=== PATIENT | male | born 1970 | race Caucasian/White ===

== ENCOUNTER 2016-06-07 20:35 | Emergency (ER) | payer OTHER ==
[2016-06-07] MEDS ORDERED: OXYCODONE/APAP 5/325MG PREPACK#4 BTL TAKEHOME ONE (20:46)
--- NOTE | 2016-06-07 20:51 | UCPHY ---
H & P Patient Type: New Time Seen by Provider: 06/07/16 20:41 HPI/ROS: CHIEF COMPLAINT: Burn HISTORY OF PRESENT ILLNESS: Patient is a 46-year-old man who comes to the Urgent Care complaining of a burn to his left wrist. He states that he was cooking stew and it splattered onto his wrist. This happened about 20 minutes ago. He does not have any other significant medical history. Has had 2 beers tonight. REVIEW OF SYSTEMS: Constitutional: denies: chills, fever, recent illness, recent injury EENTM: denies: blurred vision, double vision, nose congestion Respiratory: denies: cough, shortness of breath Cardiac: denies: chest pain, irregular heart rate, lightheadedness, palpitations Gastrointestinal/Abdominal: denies: abdominal pain, diarrhea, nausea, vomiting, blood streaked stools Genitourinary: denies: dysuria, frequency, hematuria, pain Musculoskeletal: denies: joint pain, muscle pain Skin: See HPI Neurological: denies: headache, numbness, paresthesia, tingling, dizziness, weakness Hematologic/Lymphatic: denies: blood clots, easy bleeding, easy bruising Immunologic/allergic: denies: HIV/AIDS, transplant EXAM: GENERAL: Well-appearing, well-nourished and in no acute distress. HEAD: Atraumatic, normocephalic. EYES: Pupils equal round and reactive to light, extraocular movements intact, sclera anicteric, conjunctiva are normal. ENT: TMs normal, nares patent, oropharynx clear without exudates. Moist mucous membranes. NECK: Normal range of motion, supple without lymphadenopathy or JVD. LUNGS: Breath sounds clear to auscultation bilaterally and equal. No wheezes rales or rhonchi. HEART: Regular rate and rhythm without murmurs, rubs or gallops. ABDOMEN: Soft, nontender, normoactive bowel sounds. No guarding, no rebound. No masses appreciated. BACK: No CVA tenderness, no spinal tenderness, step-offs or deformities EXTREMITIES: Normal range of motion, no pitting or edema. No clubbing or cyanosis. NEUROLOGICAL: Cranial nerves II through XII grossly intact. Normal speech, normal gait. 5/5 strength, normal movement in all extremities, normal sensation PSYCH: Normal mood, normal affect. SKIN: less than 1% body surface area burn. 2nd degree. Sensation intact. Thin layer of skin sloughed. It is less than size of his palm. Medial aspect of wrist only, not circumferential normal range of motion and sensation distally. Source: Patient Exam Limitations: No limitations - Personal History Tetanus Vaccine Date: <10yrs - Medical/Surgical History Hx Asthma: No Hx Chronic Respiratory Disease: No Hx Diabetes: No Hx Cardiac Disease: No Hx Renal Disease: No Hx Cirrhosis: No Hx Alcoholism: No Hx HIV/AIDS: No Hx Splenectomy or Spleen Trauma: No Other PMH: Orthopedic surgery on both knees, the right knee recently - Family History Significant Family History: No pertinent family hx - Social History Smoking Status: Never smoked Alcohol Use: Sober Drug Use: None Constitutional: Initial Vital Signs Temperature (C) 36.6 C 06/07/16 21:09 Heart Rate 85 06/07/16 21:09 Respiratory Rate 16 06/07/16 21:09 Blood Pressure 148/104 H 06/07/16 21:09 O2 Sat (%) 95 06/07/16 21:09 O2 Delivery Mode Room Air Allergies/Adverse Reactions: No Known Allergies Allergy (Verified 06/07/16 21:07) Home Medications: Medication Instructions Recorded oxyCODONE/APAP 5/325 [Percocet 1 - 2 tab PO Q4H PRN #20 tab 06/07/16 5/325 (*)] Medical Decision Making ED Course/Re-evaluation: Patient has a less than 1% body surface area second-degree burn. The skin is already sloughed. We have treated the margins slightly. We will dressed with bacitracin and sterile dressing and have him change daily and follow up with surgery. Patient and understand agree with this plan. Initially they declined pain medication but I will prescribe him Percocet to use p.r.n. for pain. We discussed indications for returning. Additional verbal discharge instructions yet. Supplies given for dressing changes. Differential Diagnosis: Partial list of the Differential diagnosis considered include but were not limited to; burn, infection, foreign body and although unlikely based on the history and physical exam, I also considered assault, fasciitis. I discussed these differential diagnoses and the plan with the patient as well as the usual and expected course. The patient understands that the diagnosis is provisional and that in medicine we are not always correct and that further workup is often warranted. Usual and customary warnings were given. All of the patient's questions were answered. The patient was instructed to return to the emergency department should the symptoms at all worsen or return, otherwise to followup with the physician as we discussed. - Data Points Medications Given: Discontinued Medications Oxycodone/Acetaminophen (Percocet 5/325mg Prepack#4) 1 btl TAKEHOME EDNOW ONE Stop: 06/07/16 20:47 Last Admin: 06/07/16 21:25 Dose: 1 btl Departure - Departure Disposition: Home, Routine, Self-Care Clinical Impression: 2Nd degree burn Condition: Fair Instructions: Second Degree Burn (ED) Referrals: Nissa Culver MD [Primary Care Provider] - As per Instructions Wong Perez MD [Medical Doctor] - As per Instructions Prescriptions: oxyCODONE/APAP 5/325 [Percocet 5/325 (*)] 1 - 2 tab PO Q4H PRN #20 tab PRN Reason: Pain, Severe - PQRS PQRS Measurement: Not applicable
[2016-06-07 21:15] VITALS: RESP 16
[2016-06-07 21:39] VITALS: BP 137/95; PULSE 79; TEMP 97.7; O2SAT 94
== END 2016-06-07 21:30 | disposition home or self-care (01) ==
LOC: CED 20:35
DX: T23.272A Burn of second degree of left wrist, initial encounter (principal); T31.0 Burns involving less than 10% of body surface; Y93.G3 Activity, cooking and baking
CPT/HCPCS: 16020-PO; 99202-PO; G0463-PO

== ENCOUNTER → 2018-04-05 | Outpatient (CLI) | payer OTHER | LOC: BMCIMAGING 14:01 | PROVIDERS: ATTEND Physician Assistant | DX: S49.92XA Unspecified injury of left shoulder and upper arm, initial encounter (principal) ==

== ENCOUNTER → 2018-09-05 | Outpatient (CLI) | payer OTHER | LOC: BMCIMAGING 09:50 | PROVIDERS: ATTEND Physician Assistant | DX: M12.862 Other specific arthropathies, not elsewhere classified, left knee (principal) ==